=== PATIENT | male | born 1935 | race Caucasian/White ===

== ENCOUNTER 2016-08-16 11:33 | Inpatient (IN) | payer MEDICARE, OTHER ==
[~2016-08-16] VITALS: Ht 167.6 cm; Wt 100.2 kg
[~2016-08-16 11:33] MED LIST: BYSTOLIC5 MG PO; DOXYCYCLINE 10100 MG PO; FEXOFENADINE H180 MG PO; LASIX 20MG TABL20 MG PO; LISINOPRIL/HCTZ1 TA2 PO; MULTIPLE VITAMI1 CAP PO; NIACIN500 MG PO; NORCO 325 MG-51 TAB PO; PRINZIDE 25 MG-1 TAB PO; SPIRIVA18 MCG IH; SYNTHROID0.05 MG/TA PO; TYLENOL 325MG325 MG PO; TYLENOL ARTHRI650 M1 PO; XARELTO15 MG PO; ZOCOR 20MG20 MG PO; ZOVIRAX400 MG PO; ZYLOPRIM 300MG300 MG PO
[2016-08-16] MEDS ORDERED: TOPROL XL 25MG25 MG PO (14:11)
[2016-08-16] MEDS ORDERED: ULORIC40 MG PO ×2 (14:13→15:47)
[2016-08-16] MEDS ORDERED: RT SPIRIVA18 MCG IH (14:14)
[2016-08-16] MEDS ORDERED: ALLEGRA 180MG180 MG PO ×2 (14:15→15:47)
[2016-08-16] MEDS ORDERED: PLAVIX 75MG TAB75 MG PO (14:15)
[2016-08-16] MEDS ORDERED: SYNTHROID0.1 MG/TAB PO (14:18)
[2016-08-16] MEDS ORDERED: SLO-NIACIN250 MG PO (14:20)
[2016-08-16 19:14] VITALS: BP 120/82; PULSE 97; TEMP 97.4
[2016-08-17 05:43] VITALS: BP 129/59; PULSE 94; TEMP 97.4
[2016-08-17 16:12] VITALS: BP 157/81; PULSE 85; TEMP 97.1
[2016-08-18 06:18] VITALS: BP 164/73; PULSE 88; TEMP 97.5
[2016-08-18 17:22] VITALS: BP 157/88; PULSE 84; TEMP 97
[2016-08-19 04:52] VITALS: BP 107/48; PULSE 77; TEMP 97.7
[2016-08-19 07:29] VITALS: BP 149/77; PULSE 101
[2016-08-19 16:45] VITALS: BP 126/64; PULSE 79; TEMP 97
[2016-08-20 05:03] VITALS: BP 136/61; PULSE 87; TEMP 98.3
[2016-08-20 18:18] VITALS: BP 155/80; PULSE 88; TEMP 97
[2016-08-21 06:16] VITALS: BP 116/44; PULSE 77; TEMP 98.4
[2016-08-21 17:03] VITALS: BP 139/89; PULSE 82; TEMP 97.1
[2016-08-22 05:27] VITALS: BP 156/75; PULSE 76; TEMP 98.2
[2016-08-22 17:12] VITALS: BP 133/64; PULSE 95; TEMP 97
[2016-08-23 04:59] VITALS: BP 133/73; PULSE 74; TEMP 98.5
[2016-08-23 16:47] VITALS: BP 148/82; PULSE 95; TEMP 97
[2016-08-24 05:57] VITALS: BP 96/59; PULSE 77; TEMP 98.7
[2016-08-24 16:12] VITALS: BP 129/58; PULSE 80; TEMP 96.5
[2016-08-25 03:29] VITALS: BP 154/73; PULSE 94; TEMP 98.4
[2016-08-25 17:50] VITALS: BP 124/70; PULSE 92; TEMP 97.8
[2016-08-26 04:18] VITALS: BP 99/78; PULSE 75; TEMP 97.3
[2016-08-26 17:26] VITALS: BP 154/99; PULSE 107; TEMP 97.8
[2016-08-26 22:40] VITALS: BP 151/96; PULSE 94
[2016-08-27 04:58] VITALS: BP 103/53; PULSE 76; TEMP 97.2
[2016-08-27 12:00] VITALS: BP 146/70; PULSE 79
[2016-08-28 06:34] VITALS: BP 122/51; PULSE 73; TEMP 97.6
[2016-08-28 16:38] VITALS: BP 164/85; PULSE 96; TEMP 97.3
[2016-08-29 05:47] VITALS: BP 148/72; PULSE 73; TEMP 98.5
[2016-08-29 19:00] VITALS: BP 151/77; PULSE 107; TEMP 98
[2016-08-30 05:49] VITALS: BP 103/44; PULSE 58; TEMP 98.3
[2016-08-30] MEDS ORDERED: TYLENOL 325MG325 MG PO (08:40)
[2016-08-30] MEDS ORDERED: DULCOLAX S10 MG/SUPP RC (08:40)
[2016-08-30] MEDS ORDERED: COLACE 100100 MG/CAP PO (08:41)
[2016-08-30 09:54] VITALS: BP 103/44; PULSE 58; TEMP 98.3
== END 2016-08-30 11:20 | DRG 57 ==
DX: I69.351 Hemiplegia and hemiparesis following cerebral infarction affecting right dominant side (principal); I69.392 Facial weakness following cerebral infarction; I69.391 Dysphagia following cerebral infarction; I69.321 Dysphasia following cerebral infarction; I11.0 Hypertensive heart disease with heart failure; Z95.0 Presence of cardiac pacemaker; S30.1XXA Contusion of abdominal wall, initial encounter; W18.30XA Fall on same level, unspecified, initial encounter; R13.10 Dysphagia, unspecified
CPT/HCPCS: 99222-AI; 99232-AI; 99239; J1650

== ENCOUNTER 2020-12-26 07:46 | Day surgery (SDC) | payer MEDICARE, OTHER ==
[2020-12-26] VITALS (10 sets, daily range): BP systolic 121–165; BP diastolic 59–79; PULSE 59–64; TEMP 97.9
[~2020-12-26] VITALS: Ht 167.6 cm; Wt 87.8 kg
[~2020-12-26 07:46] MED LIST changes: +ALLEGRA 180MG180 MG PO; +COLACE 100100 MG/CAP PO; +DULCOLAX S10 MG/SUPP RC; -MULTIPLE VITAMI1 CAP PO; +MULTIPLE VITAMI1 TA5 PO; +PLAVIX 75MG TAB75 MG PO; +RT SPIRIVA18 MCG IH; +SLO-NIACIN250 MG PO; +TOPROL XL 25MG25 MG PO; +ULORIC40 MG PO
[2020-12-26] MEDS ORDERED: ZEBETA 5MG5 MG PO (08:37)
[2020-12-26] MEDS ORDERED: PACERONE200 MG PO (08:38)
[2020-12-26] MEDS ORDERED: LIPITOR 10MG10 MG PO (08:39)
[2020-12-26] MEDS ORDERED: CALQUENCE100 MG PO (08:40)
[2020-12-26] MEDS ORDERED: ALLEGRA 180MG180 MG PO (08:40)
[2020-12-26] MEDS ORDERED: INCRUSE EL62.5 MCG/A IH (08:41)
[2020-12-26 08:45] LABS: HEMOGLOBIN 11.4 g/dl (13.5-18.0); MEAN CELL VOLUME 95 fl (80.0-100.0); MEAN CORPUSCULAR HEMOGLOBIN 31 pg (27.0-31.0); MEAN CORPUSCULAR HGB CONC 33 g/dl (33.0-37.0); MEAN PLATELET VOLUME 10.7 fl (7.4-10.4); PLATELET COUNT 148 K/mm3 (130-400); RED BLOOD COUNT 3.66 M/mm3 (4.20-5.60); REDCELL DISTRIBUTION WIDTH-CV 15.6 % (11.5-14.5)
[2020-12-26 08:47] LABS: HEMATOCRIT 34.9 % (42.0-52.0)
[2020-12-26 08:54] LABS: INR 1.2 (0.8-3.0); PROTHROMBIN TIME 12.9 SECONDS (9.7-12.8)
[2020-12-26 08:56] LABS: CALCIUM 8.8 mg/dL (8.4-10.2); CREATININE, serum 1.39 mg/dL (0.72-1.25); PARTIAL THROMBOPLASTIN TIME 30.7 SECONDS (26.0-37.0); POTASSIUM 4.2 mmol/L (3.5-4.5)
--- NOTE | 2020-12-26 09:50 | NUR ---
SEE MERGE FOR MEDICATION ADMINISTRATION TIMES/DOSAGES AND INTRA/POST SEDATION ASSESSMENT.
[2020-12-26] MEDS ORDERED: ZIAC 5/6.25MG T1 TAB PO (11:03)
--- NOTE | 2020-12-26 12:45 | NUR ---
Pt assisted up from bed to use toilet in room. Venous puncture site to rt groin remains soft to palpation and dressing is clean, dry and intact. Pt is steady on feet with cane. DC instructions reviewed with pt and . Both express understanding. INT DC'd with catheter intact.
--- NOTE | 2020-12-26 13:00 | NUR ---
Pt assisted out to son's car by wheelchair with belongings. Dressing to rt venous puncture site remains clean, dry and intact.
== END 2020-12-26 13:00 | disposition home or self-care (01) ==
LOC: COL.CAR 07:46
PROVIDERS: Internal Medicine Cardiovascular Disease
DX: I27.20 Pulmonary hypertension, unspecified (principal); I10 Essential (primary) hypertension; Z95.0 Presence of cardiac pacemaker
CPT/HCPCS: C1894; J1644; J2250; J3010

== ENCOUNTER 2023-03-05 15:53 | Inpatient (IN) | payer MEDICARE ==
[~2023-03-05] VITALS: Ht 177.8 cm; Wt 92.6 kg
[2023-03-05 13:00] VITALS: BP_SYST 140
[~2023-03-05 15:53] MED LIST changes: +CALQUENCE100 MG PO; +INCRUSE EL62.5 MCG/A IH; +LIPITOR 10MG10 MG PO; +PACERONE200 MG PO; +ZEBETA 5MG5 MG PO; +ZIAC 5/6.25MG T1 TAB PO
[2023-03-05] MEDS ORDERED: NS 1,000 ML IV ONE (16:15)
[2023-03-05] MEDS ORDERED: Albuterol/Ipratropium 3 MG-0.5 MG/3 ML Neb Soln IH ONE (16:15)
[2023-03-05 16:20] LABS: ARTERIAL BLD GAS O2 SATURATION 96.6 % (92-100); ARTERIAL BLD GAS TCO2 CT 23.3; ARTERIAL BLOOD GAS BASE EXCESS -0.9 (-2-2); ARTERIAL BLOOD GAS HCO3 22.3 meq/L (22-26); ARTERIAL BLOOD GAS PCO2 32.4 mmHg (35-45); ARTERIAL BLOOD GAS pH 7.46 (7.35-7.45)
[2023-03-05 17:00] VITALS: BP_SYST 140
[2023-03-05] MEDS ORDERED: TYLENOL 8 HR PO (17:21)
[2023-03-05] MEDS ORDERED: Doxycycline Hyclate 100 MG in NS 150 ML IV ONE (17:30)
[2023-03-05] MEDS ORDERED: dexAMETHasone 10 MG/ML VIAL IV ONE (17:30)
[2023-03-05] MEDS ORDERED: cefTRIAXone 1 G in Water For Injection,Sterile 10 ML IV ONE (17:30)
[2023-03-05 17:33] LABS: BILIRUBIN,TOTAL 0.7 mg/dL (0.2-1.2); C-REACTIVE PROTEIN 6.9 mg/dL (0.00-0.50); CALCIUM 8.5 mg/dL (8.4-10.2); CREATININE, serum 1.25 mg/dL (0.72-1.25); POTASSIUM 3.7 mmol/L (3.5-4.5); TOTAL PROTEIN 6.4 gm/dL (6.2-8.1)
[2023-03-05 17:39] LABS: TROPONIN-I 0.021 ng/mL (0.00-0.033)
[2023-03-05 17:43] LABS: BASO % 0.2 % (0.0-2.0); EOS % 0.2 % (0.0-4.0); GRAN % 81.7 % (42.2-75.2); HEMATOCRIT 38.7 % (42.0-52.0); HEMOGLOBIN 12.8 g/dl (13.5-18.0); LYMPH # 0.4 K/mm3 (1.2-3.4); LYMPH % 7.5 % (20.0-51.0); MEAN CELL VOLUME 97 fl (80.0-100.0); MEAN CORPUSCULAR HEMOGLOBIN 32 pg (27-31); MEAN CORPUSCULAR HGB CONC 33 g/dl (33.0-37.0); MEAN PLATELET VOLUME 11.2 fl (7.4-10.4); MONO # 0.5 K/mm3 (0.1-0.6); MONO % 10.2 % (1.7-9.3); PLATELET COUNT 132 K/mm3 (130-400); RED BLOOD COUNT 3.99 M/mm3 (4.20-5.60); REDCELL DISTRIBUTION WIDTH-CV 13.6 % (11.5-14.5)
[2023-03-05] MEDS ORDERED: Acetaminophen 325 MG TAB PO PRN (18:15)
[2023-03-05] MEDS ORDERED: Albuterol 90 MCG/PUFF 8 GM MDI IH PRN (18:15)
[2023-03-05] MEDS ORDERED: hydrALAZINE 20 MG/ML 1 ML VIAL IV PRN (19:15)
[2023-03-05 19:26] LABS: COLLECTION METHOD CLEAN CATCH
[2023-03-05 19:52] VITALS: BP 173/85; PULSE 70; TEMP 99.2
--- NOTE | 2023-03-05 19:52 | NUR ---
RADHA ADMITTED TO ROOM 304. VS- 173/85 96 O2 ON 2L NC, TEMP. 99.2, PULSE 70, RR 20. INCREASED WOB PROFOUND-CLAVICLE RETRACTIONS AND BELLY BREATHING NOTED. LUNG SOUNDS AUSCULTATED INSP. & EXP. WHEEZES BILATERAL UPPER LOBES WITH COARSE CRACKLES IN LOWER LOBES. DAUGHTER WAS BEDSIDE AND MED REC COMPLETE. ORIENTED PATIENT TO ROOM. WILL MAINTAIN RESPIRATORY VIGILANCE.
[2023-03-05] MEDS ORDERED: Albuterol 90 MCG/PUFF 8 GM MDI IH SCH (20:00)
--- NOTE | 2023-03-05 20:00 | NUR ---
CALL PLACED TO RT, PATIENT DESAT 86-87%. INCREASED O2 3L- 02 SAT 93%.
[2023-03-05 20:12] LABS: MUCOUS Present (NOT PRESENT); SQUAMOUS EPITHELIAL 0-2 /hpf (0-10); URINE APPEARANCE Clear (CLEAR/HAZY); URINE BACTERIA Rare /hpf (NONE SEEN); URINE BLOOD Negative (NEGATIVE); URINE COLOR Yellow (YELLOW); URINE GLUCOSE Negative (NEGATIVE); URINE KETONE Negative (NEGATIVE); URINE NITRATE Negative (NEGATIVE); URINE PROTEIN(semi-quant) Negative (NEGATIVE); URINE RBC 0-2 /hpf (0-2); URINE UROBILINOGEN 0.2 E.U/dL (0.2-1.0)
[2023-03-05 21:00] VITALS: BP_SYST 173
[2023-03-05 21:22] LABS: INR 1.1 (0.8-3.0); PROTHROMBIN TIME 12.2 SECONDS (9.7-12.8)
--- NOTE | 2023-03-05 21:30 | NUR ---
VITALS RECHECK- SYSTOLIC BP 182, ADMINISTERED PRN HYDRALAZINE 0.5ML.
--- NOTE | 2023-03-05 21:40 | NUR ---
Call placed to hospitalist critical lab value [place] 275
--- NOTE | 2023-03-05 22:05 | NUR ---
RECHECKED VITALS: BP 160/66, 95 % O2 3L NC, 70 PULSE.
--- NOTE | 2023-03-05 22:37 | NUR ---
ALERTED BY VITALS MONITOR/ALARM. ENTERED PATIENTS ROOM TO FIND O2 NC COMPLETELY OFF. REAPPLIED AND O2 SAT 89% RECOVERING TO 95%.
[2023-03-05 23:16] VITALS: BP 140/87; BP_SYST 173; PULSE 71; TEMP 98.2
[2023-03-06] VITALS (11 sets, daily range): BP systolic 140–174; BP diastolic 71–78; PULSE 70–80; TEMP 97.3–98.4
--- NOTE | 2023-03-06 00:51 | NUR ---
ENTERED PATIENT'S ROOM TO FIND OXYGEN NC ON TOP OF HIS HEAD. O2 SAT 88%. ASKED IF HE WOULD BE MORE COMFORTABLE WITH OXYMASK, HE SAID, "NO I DON'T LIKE THESE, THEY MAKE A LOUD NOISE." (REFERRING TO VITALS MONITOR ALARM). EXPLAINED THE NEED FOR OXYGEN AND PULSE OX VIGILANCE. PATIENT ACCEPTING.
--- NOTE | 2023-03-06 01:38 | NUR ---
Report from TI Mcnamara that she would like patient to be seen by charge. Patient noted to have very labored breathing at rest. Appears to be sleeping. Noted to have retractions at clavicles. Is currently on 4L/NC. RT is also at bedside. Instructed to call MARU Goldstein for eval. New orders received and initiated.
[2023-03-06] MEDS ORDERED: Furosemide 40 MG/4 ML VIAL IV ONE (01:45)
--- NOTE | 2023-03-06 01:55 | NUR ---
CALL PLACED TO HOSPITALIST ANGELO. PATIENT WOB BECOMING MORE NOTEABLE WITH SIGNIFICANT WHEEZING, CRACKLES AND RETRACTIONS. BILATERAL +3 EDEMA. TORB TO IXS, PLACE GALVEZ, STOP FLUIDS, CT CHEST, ABGS AND MONITOR FOR FLUID OVERLOAD GIVEN. CALL ALSO PLACED TO RT-30% FIO2 BIPAP
[2023-03-06 02:13] LABS: ARTERIAL BLD GAS O2 SATURATION 98.4 % (92-100); ARTERIAL BLD GAS TCO2 CT 20.8; ARTERIAL BLOOD GAS BASE EXCESS -2.9 (-2-2); ARTERIAL BLOOD GAS HCO3 19.9 meq/L (22-26); ARTERIAL BLOOD GAS PCO2 29.2 mmHg (35-45); ARTERIAL BLOOD GAS PO2 113.8 mmHg (80-100); ARTERIAL BLOOD GAS pH 7.45 (7.35-7.45)
--- NOTE | 2023-03-06 02:50 | NUR ---
RT NOTIFIED BY NURSE OF PT'S LABORED BREATHING. MDI TX GIVEN. MIDLEVEL NOTIFIED, ORDERS TO OBTAIN ABG AND INITIATE BIPAP RECIEVED. NO NEW ORDERS AT THIS TIME.
[2023-03-06] MEDS ORDERED: Iohexol 300 - 100 ML VIAL IV ONE (03:56)
[2023-03-06] MEDS ORDERED: NS 64 ML IV SCH (03:56)
--- NOTE | 2023-03-06 06:34 | NUR ---
VITAL SIGNS RECHECK-SYSTOLIC BP 184/89. O2 95% ON 4L OXYMASK, PULSE 70. ADMINISTERING PRN IV HYDRALAZINE
[2023-03-06] MEDS ORDERED: Doxycycline Hyclate 100 MG in NS 150 ML IV SCH (08:00)
--- NOTE | 2023-03-06 08:20 | NUR ---
during shift change patient was working with Respiratory. patient placed on bipap machine. patient alert and oriented x3. patient denies any pain but is experiencing shortness of air just laying in bed.patient was able to take his medication this morning with no issues. call light within reach. bed alarm on.
[2023-03-06] MEDS ORDERED: Amiodarone 200 MG TAB PO SCH (09:00)
[2023-03-06] MEDS ORDERED: dexAMETHasone 10 MG/ML VIAL IV SCH (09:00)
[2023-03-06] MEDS ORDERED: Atorvastatin 10 MG TAB PO SCH (09:00)
[2023-03-06] MEDS ORDERED: Loratadine 10 MG TAB PO SCH (09:00)
[2023-03-06] MEDS ORDERED: BISOPROLOL PO SCH (09:00)
[2023-03-06] MEDS ORDERED: Tiotropium 2.5 MCG Respimat MDI IH SCH (09:00)
[2023-03-06] MEDS ORDERED: HYDROCHLOROTHIAZIDE PO SCH (09:00)
[2023-03-06] MEDS ORDERED: Umeclidinium 62.5 MCG **** subs to Tiotropium 5 mcg IH SCH (09:00)
[2023-03-06] MEDS ORDERED: Fexofenadine 180 MG **** subs to Loratadine 10 MG PO SCH (09:00)
[2023-03-06 09:30] LABS: HEMATOCRIT 38.9 % (42.0-52.0); HEMOGLOBIN 12.9 g/dl (13.5-18.0); MEAN CELL VOLUME 98 fl (80.0-100.0); MEAN CORPUSCULAR HEMOGLOBIN 32 pg (27-31); MEAN CORPUSCULAR HGB CONC 33 g/dl (33.0-37.0); MEAN PLATELET VOLUME 10.6 fl (7.4-10.4); PLATELET COUNT 145 K/mm3 (130-400); RED BLOOD COUNT 3.99 M/mm3 (4.20-5.60); REDCELL DISTRIBUTION WIDTH-CV 13.5 % (11.5-14.5)
[2023-03-06 09:54] LABS: ALBUMIN 2.9 gm/dL (3.4-4.8); BILIRUBIN,TOTAL 0.6 mg/dL (0.2-1.2); CALCIUM 8.2 mg/dL (8.4-10.2); CREATININE, serum 1.07 mg/dL (0.72-1.25); POTASSIUM 3.7 mmol/L (3.5-4.5); TOTAL PROTEIN 6.3 gm/dL (6.2-8.1)
[2023-03-06 10:24] LABS: BAND 2 % (0-10); LYMPHOCYTE 7 % (20.0-51.0); NEUTROPHILS 91 % (42.0-75.2); OVALOCYTES 1+; PLATELET ESTIMATE NORMAL (NORMAL)
--- NOTE | 2023-03-06 13:11 | NUR ---
animal husbandry worker completed intake over the with pt's daughter due to isolation and not being oriented in recent notes. CATHY called Chester, son [phone] who took SW number for his sister, Cierra to call back. CATHY spoke with Cierra who advised pt lives in [place] and sees Dr. José. He obtains medications from [facility] with no difficulties. He is independent with ADLS and uses a FWW and cane for DME. Cierra reports he has a DPOA-HC they are looking for, but it lists his children: Cierra, Chester, and Denton. Cierra provides they were planning to have pt go to [facility] tomorrow at 10am, then this hospital stay happened. She reports she spoke with them and they are aware pt is now here. CATHY advised PT/OT was pending at this time. CATHY Watt faxed updates to [facility]. OT reccomends SNF vs LTC. Discharge Plan: [facility] when able
[2023-03-06] MEDS ORDERED: cefTRIAXone 1 G in Water For Injection,Sterile 10 ML IV SCH (18:00)
--- NOTE | 2023-03-06 20:30 | NUR ---
Patient resting in bed. Denies any pain or needs at this time. Assessment complete. IV in left AC flushes easily with no complicaitons. Call light and personal items in reach. Bed in low position and bed alarm on.
[2023-03-07] VITALS (14 sets, daily range): BP systolic 147–174; BP diastolic 61–75; PULSE 70–73; TEMP 97.5–98.2
--- NOTE | 2023-03-07 06:00 | NUR ---
Patient resting in bed. Denies any pain or needs this morning. Patient had an uneventful evening. Patient was wheezing when giving morning meds, called respiratory to give PRN inhaler. Patient agreed to go back on bipap for a little bit as well. Call light and personal items in reach. Bed in low position and bed alarm on.
[2023-03-07 08:00] LABS: HEMOGLOBIN 12.8 g/dl (13.5-18.0); MEAN CELL VOLUME 97 fl (80.0-100.0); MEAN CORPUSCULAR HEMOGLOBIN 33 pg (27-31); MEAN CORPUSCULAR HGB CONC 34 g/dl (33.0-37.0); MEAN PLATELET VOLUME 11.8 fl (7.4-10.4); PLATELET COUNT 158 K/mm3 (130-400); RED BLOOD COUNT 3.93 M/mm3 (4.20-5.60); REDCELL DISTRIBUTION WIDTH-CV 13.8 % (11.5-14.5)
[2023-03-07 08:18] LABS: ALBUMIN 2.7 gm/dL (3.4-4.8); BILIRUBIN,TOTAL 0.5 mg/dL (0.2-1.2); CALCIUM 8.1 mg/dL (8.4-10.2); CREATININE, serum 1.18 mg/dL (0.72-1.25); POTASSIUM 4.9 mmol/L (3.5-4.5); TOTAL PROTEIN 6.1 gm/dL (6.2-8.1)
[2023-03-07] MEDS ORDERED: Clopidogrel 75 MG TAB PO SCH (09:00)
--- NOTE | 2023-03-07 09:20 | NUR ---
PT RESTING IN BED UPON ENTERING. ASSESSMENT DONE, ORAL MEDS GIVEN PER ORDER. IN TO LEFT AC INFILTRATED, UNABLE TO GIVE IV MEDS AT THIS TIME. PT DENIES PAIN AT THIS TIME. PT ON 3L OXYMASK AND O2 SATS 90%. PHYSICAL THERAPY AT BEDSIDE AND STATES THAT PT OXYGEN SATS DROPPED TO LOW 80S DURING AMBULATION. RESPIRATORY CALLED TO APPLY BIPAP. BILATERAL LOWER EXTREMITY +1 AND NON PITTING BILATERAL UPPER EXTREMITY EDEMA. PT DENIES NEEDS AT THIS TIME. BED IN LOWEST POSITION, CALL LIGHT IN REACH, BED ALARM ON
[2023-03-07 09:52] LABS: LYMPHOCYTE 2 % (20.0-51.0); NEUTROPHILS 94 % (42.0-75.2); PLATELET ESTIMATE NORMAL (NORMAL)
--- NOTE | 2023-03-07 11:00 | NUR ---
LEFT AC INT INFILTRATED. EDEMA AROUND SITE, NO REDNESS NOTED AND PT COMPLAINING OF PAIN WHEN INT FLUSHED. THIS NURSE ATTEMPTED TO START NEW IV 2 TIMES WITH NO SUCCESS. DAVID FROM [facility] NOTIFIED AND STATED THAT SHE IS TOO BUSY TO ATTEMPT RIGHT NOW BUT WILL BE ABLE TO IN 1 HOUR.
--- NOTE | 2023-03-07 11:06 | NUR ---
SW Student faxed clinical updates to [facility] (fax#[phone]).
--- NOTE | 2023-03-07 12:20 | NUR ---
IV SERVICES AT BEDSIDE AND STARTED AT 20G IV RIGHT HAND. DECADRON AND ANTIBIOTICS GIVEN PER ORDER. PT SWITCHED FROM BIPAP TO 3L OXYMASK, O2 SATS 92%. PT DENIES NEEDS AT THIS TIME. BED IN LOWEST POSITION, CALL LIGHT IN REACH, BED ALARM ON
--- NOTE | 2023-03-07 16:08 | NUR ---
PT ON 3L OXYMASK UPON ENTERING. REMDESIVIR COMPLETE AND IV FLUSHED. PT DENEIS NEEDS AT THIS TIME. BED IN LOWEST POSITION, CALL LIGHT IN REACH, BED ALARM ON
--- NOTE | 2023-03-07 18:25 | NUR ---
PT GIVEN IV ROCEPHIN. PT REPOSITIONED IN BED AND GALVEZ EMPTIED BY PRICE HOGUE.
--- NOTE | 2023-03-07 19:18 | NUR ---
REPORT GIVEN TO TI AL
--- NOTE | 2023-03-07 19:40 | NUR ---
PATIENT RESTING IN BED WITH TV ON WITH FAMILY AT BEDSIDE WITH NO ACUTE DISTRESS NOTED. PATIENT ON 3 LITERS OF OXYGEN VIA OXYMASK. TELEMETRY INTACT. FAMILY UPDATED ON PATIENT CONDITION PER REQUEST AND PATIENT APPROVAL. ASSESSMENT COMPLETED. PATIENT TOLERATED WELL. PATIENT DENIES ANY NEEDS AT PRESENT. BED IN LOW POSITION WITH WHEELS LOCKED WITH RAILS UP X3 AND CALL LIGHT WITHIN REACH. BED ALARM ON.
--- NOTE | 2023-03-07 21:09 | NUR ---
PATIENT RESTING IN BED WITH TV ON WITH NO FAMILY PRESENT WITH NO ACUTE DISTRESS NOTED. PATIENT ON 3 LITERS OF OXYGEN VIA OXYMASK. MEDICATION ADMINISTRATION COMPLETED AT THIS TIME. PATIENT TOELRATED WELL. PATIENT REQUESTED HELP TO BSC. PATIENT ASSISTED UP TO BSC WITH WALKER. PATIETN HAD MEDIUM SOFT FORMED BOWEL MOVEMENT. LUISITO CARE PROVIDED AND PATIENT ASSISTED TO REPOSITION IN BED FOR COMFORT. PATIENT DENIES ANY OTHER NEEDS. BED IN LOW POSITION WITH WHEELS LOCKED WITH RAILS UP X3 AND CALL LIGHT WITHIN REACH. BED ALARM ON.
[2023-03-08] VITALS (11 sets, daily range): BP systolic 134–179; BP diastolic 42–84; PULSE 68–73; TEMP 96.9–98.5
[2023-03-08 05:57] LABS: GRAN # 11.5 K/mm3 (1.4-6.5); GRAN % 93.9 % (42.2-75.2); LYMPH # 0.2 K/mm3 (1.2-3.4); LYMPH % 1.9 % (20.0-51.0); MEAN CELL VOLUME 99 fl (80.0-100.0); MEAN CORPUSCULAR HEMOGLOBIN 33 pg (27-31); MEAN CORPUSCULAR HGB CONC 33 g/dl (33.0-37.0); MEAN PLATELET VOLUME 11.5 fl (7.4-10.4); MONO # 0.4 K/mm3 (0.1-0.6); MONO % 3.5 % (1.7-9.3); PLATELET COUNT 173 K/mm3 (130-400); RED BLOOD COUNT 3.68 M/mm3 (4.20-5.60); REDCELL DISTRIBUTION WIDTH-CV 13.9 % (11.5-14.5)
[2023-03-08 06:04] LABS: HEMATOCRIT 36.3 % (42.0-52.0)
[2023-03-08 06:14] LABS: ALBUMIN 2.6 gm/dL (3.4-4.8); BILIRUBIN,TOTAL 0.4 mg/dL (0.2-1.2); CREATININE, serum 1.02 mg/dL (0.72-1.25); TOTAL PROTEIN 5.3 gm/dL (6.2-8.1)
--- NOTE | 2023-03-08 07:00 | NUR ---
PATIENT ASLEEP, RESTING IN BED. PATIENT CALL LIGHT WITHIN REACH. GALVEZ PATENT AND DRAINING YELLOW URINE. BED ALARM ON, FALL PRECAUTIONS IN PLACE.
--- NOTE | 2023-03-08 12:06 | NUR ---
Data: Director Integrated visit attempted during Director Integrated rounds. Assessment: Patient was sleeping in the recliner. Plan of Care: Chaplains will remain available as needed/requested while Patient is admitted to this hospital.
[2023-03-08] MEDS ORDERED: dexAMETHasone 4 MG/ML VIAL IV ONE (13:15)
[2023-03-08] MEDS ORDERED: Remdesivir 100 MG in NS 100 ML IV SCH (16:00)
[2023-03-08] MEDS ORDERED: amLODIPine 5 MG TAB PO SCH (17:33)
--- NOTE | 2023-03-08 21:05 | NUR ---
PATIENT RESTING IN BED WITH TV ON WITH NO FAMILY PRESENT. NO ACUTE DISTRESS NOTED. PATIENT ON 3 LITERS OF OXYGEN VIA NC. ASSESSMENT COMPLETED. PATIENT TOLERATED WELL. PATIENT DENIES ANY NEEDS AT PRESENT. BED IN LOW POSITION WITH WHEELS LOCKED WITH RAILS UP X3 AND CALL LIGHT WITHIN REACH. BED ALARM ON.
--- NOTE | 2023-03-08 21:46 | NUR ---
PATIENT RESTING IN BED WITH TV ON WITH NO FAMILY PRESENT WITH NO ACUTE DISTRESS NOTED. PATIENT ON 4 LITERS OF OXYGEN VIA NC. MEDICATION ADMINISTRATION COMPLETED AT THIS TIME. PATIENT TOLERATED WELL. PATIENT DENIES ANY NEEDS AT THIS TIME. BED IN LOW POSITION WITH WHEELS LOCKED WITH RAILS UP X3 AND CALL LIGHT WITHIN REACH. BED ALARM ON.
[2023-03-09] VITALS (12 sets, daily range): BP systolic 136–169; BP diastolic 59–92; PULSE 72–79; TEMP 97.5–98.9
--- NOTE | 2023-03-09 05:57 | NUR ---
PATIENT RESTING IN BED WITH OXYMASK NOTED TO BE OFF. OXYMASK PLACED BACK ON AND PATIENT O2 SAT 94% ON 3.5 LITERS. MEDICATION ADMINISTRATION COMPLETED. PATIENT TOLERATED WELL. PATIENT WEIGHT AFTER GALVEZ EMPTIED IS 93.5 KG PER BEDSCALE.
--- NOTE | 2023-03-09 07:00 | NUR ---
PATIENT ASLEEP, RESTING IN BED, BED ALARM ON, FALL PRECAUTIONS IN PLACE. GALVEZ PATENT AND DRAINING DARK YELLOW URINE. OM ON WITH O2 AT 3.5L. CALL LIGHT WITHIN REACH
--- NOTE | 2023-03-09 07:30 | NUR ---
UPON ENTERING ROOM THIS RN FOUND PATIENT WITH OXYMASK OFF, O2 WAS 87% ON ROOM AIR. PATIENT PLACED BACK ON OXYMASK AT 3.5L. O2 SAT INCREASED TO 93%. PATIENT WAS REPOSOTIONED IN BED. ON ASSESSMENT PATIENTS RESPIRATIONS WERE 26 BREATHS PER MINUTE, PATIENT COMPLAINED OF SOB. WHEEZES AUDIBLE WITHOUT STETHOSCOPE. RT CALLED FOR TREATMENT.
[2023-03-09 09:00] LABS: HEMATOCRIT 38.5 % (42.0-52.0); HEMOGLOBIN 12.8 g/dl (13.5-18.0); MEAN CELL VOLUME 98 fl (80.0-100.0); MEAN CORPUSCULAR HEMOGLOBIN 32 pg (27-31); MEAN CORPUSCULAR HGB CONC 33 g/dl (33.0-37.0); MEAN PLATELET VOLUME 11.4 fl (7.4-10.4); PLATELET COUNT 211 K/mm3 (130-400); RED BLOOD COUNT 3.95 M/mm3 (4.20-5.60); REDCELL DISTRIBUTION WIDTH-CV 13.6 % (11.5-14.5)
[2023-03-09] MEDS ORDERED: dexAMETHasone 10 MG/ML VIAL IV SCH (09:00)
--- NOTE | 2023-03-09 09:00 | NUR ---
PER PATIENT HE DOES NOT FEEL SOB AT THIS TIME. HOWEVER RESPIRATIONS STILL AT 26 PER MINUTE.
[2023-03-09 09:29] LABS: ALBUMIN 2.8 gm/dL (3.4-4.8); BILIRUBIN,TOTAL 0.5 mg/dL (0.2-1.2); CALCIUM 8.3 mg/dL (8.4-10.2); CREATININE, serum 1.1 mg/dL (0.72-1.25); POTASSIUM 4.2 mmol/L (3.5-4.5); TOTAL PROTEIN 5.6 gm/dL (6.2-8.1)
[2023-03-09] MEDS ORDERED: Furosemide 40 MG/4 ML VIAL IV SCH (09:51)
[2023-03-09 09:52] LABS: BAND 2 % (0-10); NEUTROPHILS 94 % (42.0-75.2); PLATELET ESTIMATE NORMAL (NORMAL)
[2023-03-09] MEDS ORDERED: dexAMETHasone 4 MG TAB PO SCH (11:10)
--- NOTE | 2023-03-09 11:24 | NUR ---
DOS EOF CARDIZEM INCREASED AND ADMINISTERED ( SEE EMAR) PATIENT NOW AFIB WITH A HR OF 99.
--- NOTE | 2023-03-09 12:00 | NUR ---
IV ACCESS LOST. KATHARINA IN ER CAME TO UNIT AND WAS ABLE TO PLACE AN IV. PATIENT DENIES ANY NEEDS OR COMPLAINTS AT THIS TIME. 02 AT 3.5L OM. FOLE PATENT AND DRAINING. FALL PRECAUTIONS IN PLACE.
[2023-03-09] MEDS ORDERED: Cefepime 1 G in Water For Injection,Sterile 10 ML IV SCH (12:15)
--- NOTE | 2023-03-09 14:00 | NUR ---
ALEX SON AND DAUGHTER IN LAW UPDATED ON PATIENT STATUS
[2023-03-09] MEDS ORDERED: Furosemide 40 MG TAB PO SCH (16:00)
--- NOTE | 2023-03-09 20:00 | NUR ---
PATIENT IS A&O. VSS ON TELE. 02 @ 3L PER OXYMASK. NOTED A&P LUNG COOMBS WITH EXP WHEEZES AND COARSE LUNG SOUNDS. COVID PRECAUTIONS INPLACE. TOLERATING AHA DIET. LEFT AC IV TO INT. HS MEDS GIVEN. GALVEZ TO DD. HEAD TO TOE ASSESSMENT COMPLETE. DNR STATUS. NOTED BLE EDEMA. 1 ASSIST WITH WALKER. PT/OT CONSULTED. NO OTHER NEEDS AT THIS TIME. CALL LIGHT IN REACH. BED ALARM ON.
[2023-03-09] MEDS ORDERED: Doxycycline Monohydrate 100 MG CAP PO SCH (21:00)
[2023-03-10] VITALS (12 sets, daily range): BP systolic 138–167; BP diastolic 62–110; PULSE 70–73; TEMP 97.7–98.6
--- NOTE | 2023-03-10 05:45 | NUR ---
PATIENT FOUND TO HAVE TAKEN HIS OXYMASK OFF. AT FIRST, PATIENT REFUSED TO WEAR OXYGEN, SEEMED A LITTLE CONFUSED BUT NURSING WAS ABLE TO EDUCATE AND TALK PATIENT INTO WEARING OXYMASK. 02 SAT DROP TO MID 80'S ON RA AND HAS INCREASED IN RESPIRATORY WHEEZING. 02 SAT NOW IN LOW 90'S ON 4L OXYMASK.
--- NOTE | 2023-03-10 07:40 | NUR ---
PT LAYING IN BED UPON ENTERING. ASSESSMENT DONE, MEDS GIVEN. PT ON 4L OXYMASK AND REPORTS BEING SHORT OF BREATH AT THIS TIME, PT STATES THIS IS CONSISTENT WITH HOW HES BEEN FEELING. OXYMASK CHANGED TO NASAL CANNULA AND PT EDUCATED THAT HE NEEDS TO KEEP OXYGEN ON WHEN EATING WELL, PT VERBALIZED UNDERSTANDING. PT DENIES PAIN AT THIS TIME. INT TO LEFT AC FLUSHES WELL WITHOUT COMPLICATIONS, WRAPPED WITH NATALIE WRAP. BILATERAL LOWER EXTREMITY +1 PITTING EDEMA AND BILATERAL UPPER EXTREMITY NONPITTING EDEMA. GALVEZ PATENT WITHOUT COMPLICATIONS. EXPIRATORY WHEEZES HEARD IN ALL COOMBS, PRODUCTIVE COUGH NOTED. THIS NURSE OFFERED PT TO GET UP INTO CHAIR FOR BREAKFAST AND PT REFUSES. PT REPOSITIONED UP IN BED AND HEAD OF BED ELEVATED, LEGS ELEVATED ON PILLOWS. PT DENIES NEEDS AT THIS TIME. BED IN LOWEST POSITION, CALL LIGHT IN REACH, BED ALARM ON.
--- NOTE | 2023-03-10 07:56 | NUR ---
LAB CALLED AND NOTIFIED THIS NURSE THAT THEY WERE UNABLE TO GET LABS THIS MORNING AND THAT ANOTHER RECEIVING DISTRIBUTION STATION OPERATOR WOULD BE ON THE FLOOR TO ATTEMPT TO FRAW LABS
--- NOTE | 2023-03-10 08:06 | NUR ---
ULTRASOUND AT BEDSIDE
[2023-03-10] MEDS ORDERED: Furosemide 40 MG/4 ML VIAL IV SCH (09:15)
[2023-03-10] MEDS ORDERED: amLODIPine 5 MG TAB PO ONE (09:45)
--- NOTE | 2023-03-10 10:03 | NUR ---
MORNING LABS NOT DRAWN. LAB CALLED AND UPDATED, TECH TOLD THIS NURSE "MY SQL ETL DEVELOPER IS UP THERE NOW"
[2023-03-10 10:12] LABS: HEMOGLOBIN 13.5 g/dl (13.5-18.0); MEAN CELL VOLUME 95 fl (80.0-100.0); MEAN CORPUSCULAR HEMOGLOBIN 33 pg (27-31); MEAN CORPUSCULAR HGB CONC 35 g/dl (33.0-37.0); PLATELET COUNT 188 K/mm3 (130-400); REDCELL DISTRIBUTION WIDTH-CV 13.4 % (11.5-14.5)
[2023-03-10 10:30] LABS: ALBUMIN 2.6 gm/dL (3.4-4.8); BILIRUBIN,TOTAL 0.7 mg/dL (0.2-1.2); CREATININE, serum 1.48 mg/dL (0.72-1.25); POTASSIUM 3.8 mmol/L (3.5-4.5); TOTAL PROTEIN 5.2 gm/dL (6.2-8.1)
[2023-03-10 11:33] LABS: LYMPHOCYTE 1 % (20.0-51.0); NEUTROPHILS 97 % (42.0-75.2); PLATELET ESTIMATE NORMAL (NORMAL)
--- NOTE | 2023-03-10 12:22 | NUR ---
PT SITTING UP IN BED EATING UPON ENTERING. MEDS GIVEN. PT ON 4L NASAL CANNULA AND EXPIRATORY WHEEZING AUDIBLE. PT DENIES BEING SHORT OF BREATH AT THIS TIME. PT DENEIS NEEDS AT THIS TIME. BED IN LOWEST POSITION, CALL LIGHT IN REACH, BED ALARM ON
--- NOTE | 2023-03-10 12:40 | NUR ---
utility worker roller shop spoke with Dr. Espinal who advised pt can potentially discharge tomorrow pending Pulmonology consult. Pt will need oxygen and said he will put oximetry test in. CATHY spoke with [facility] who reports they can transport patient if they do not have conflicting appointments. CATHY spoke with Cierra, daughter [phone] regarding an update for discharge plans. Cierra was inquiring about a time and CATHY asvised she will not know by when Pulmonology could see pt. Cierra would like updates when able regarding discharge planning. CATHY faxed updates to [facility]. Discharge Plan: [facility] when able
--- NOTE | 2023-03-10 18:36 | NUR ---
ANTIBIOTIC COMPLETE, INT FLUSHED AND WRAPPED WITH NATALIE WRAP. PT ON 3L OXYMASK AND DENIES NEEDS AT THIS TIME
--- NOTE | 2023-03-10 18:56 | NUR ---
REPORT GIVEN TO TI AL
--- NOTE | 2023-03-10 22:54 | NUR ---
PATIENT DOES NOT APPEAR TO BE IN DISTRESS AT THIS TIME. NO PAIN OR DISCOMFORT REPORTED. GALVEZ CATHETAR IN PLACE WITH DEPENDENT DRAINAGE. SUPPLEMENTAL OXYGEN BEING ADMINISTERED AT 2L VIA OXYMASK. BED IS LOW POSITION AND CALL LIGHT WITHIN REACH. PATIENT HAS NO QUESTIONS OR CONCERNS AT THIS TIME.
[2023-03-11] VITALS (7 sets, daily range): BP systolic 124–172; BP diastolic 50–86; PULSE 69–71; TEMP 97.6–98.1
[2023-03-11] MEDS ORDERED: amLODIPine 10 MG TAB PO SCH (09:00)
--- NOTE | 2023-03-11 09:54 | NUR ---
Patient awake, alert and orieted. Oxymask in place, shortness of breath on exertion. Hard of hearing. Tina discontinued this AM, will monitor for issues with voiding. x1 assist ambulating with walker. Bed in lowest position with call light within reach.
--- NOTE | 2023-03-11 09:54 | NUR ---
PATIENT SPO2 ON RA 85%. NEEDS 2LPM AT REST <88%. PATIENT NEEDS 4LPM WITH EXERTION.
[2023-03-11] MEDS ORDERED: DECADRON6 MG PO (11:21)
[2023-03-11] MEDS ORDERED: NORVASC 10MG10 MG PO (11:21)
[2023-03-11] MEDS ORDERED: DOXYCYCLINE 10100 MG PO (11:21)
[2023-03-11] MEDS ORDERED: LASIX 20MG TABL20 MG PO (11:21)
[2023-03-11 11:39] LABS: CALCIUM 8.1 mg/dL (8.4-10.2); CREATININE, serum 1.52 mg/dL (0.72-1.25); POTASSIUM 4.2 mmol/L (3.5-4.5)
--- NOTE | 2023-03-11 11:54 | NUR ---
diversified crops ii farmworker was informed by Dr. Espinal that pt can discharge to [facility] today. SW called [facility] and they will take care of oxygen. CATHY faxed the oximetry and discharge orders to [facility]. CATHY spoke with Dtr, Cierra who reports they will transport patient and can be here around 1:00pm. CATHY advised they will have to stop by [facility] to retrieve the oxygen. Cierra verbalized understanding. CATHY went over IM from Medicare as pt did not answer room phone and is in isolation. Cierra and Chester were on the phone together and provided verbal consent. CATHY made copy and put original in chart. Discharge Plan: [facility] 1:00pm
--- NOTE | 2023-03-11 12:08 | NUR ---
Report called to [facility], all questions answered.
--- NOTE | 2023-03-11 14:10 | NUR ---
Patient discharged to [facility], all belongings sent home with family members. Report called to [facility]. Assisted out by wheelchair to car, patient hooked up to oxygen provided by [facility].
== END 2023-03-11 14:12 | DRG 177 ==
LOC: COL.ER 15:53 → MEDICAL 18:13
PROVIDERS: Emergency Medicine; Internal Medicine; Nurse Practitioner Family; ADMIT Internal Medicine
PROC: 5A09457 Assistance with Respiratory Ventilation, 24-96 Consecutive Hours, Continuous Positive Airway Pressure (ICD-10-PCS; principal; 2023-03-06)
PROC: XW033E5 Introduction of Remdesivir Anti-infective into Peripheral Vein, Percutaneous Approach, New Technology Group 5 (ICD-10-PCS; 2023-03-07)
DX: U07.1 COVID-19 (principal); J12.82 Pneumonia due to coronavirus disease 2019; J96.01 Acute respiratory failure with hypoxia; I69.351 Hemiplegia and hemiparesis following cerebral infarction affecting right dominant side; E87.20 Acidosis, unspecified; J90 Pleural effusion, not elsewhere classified; N17.9 Acute kidney failure, unspecified; Z66 Do not resuscitate; I10 Essential (primary) hypertension; J43.9 Emphysema, unspecified; E03.9 Hypothyroidism, unspecified; E78.5 Hyperlipidemia, unspecified; R74.01 Elevation of levels of liver transaminase levels; Z96.652 Presence of left artificial knee joint; D64.9 Anemia, unspecified; I49.9 Cardiac arrhythmia, unspecified; R79.89 Other specified abnormal findings of blood chemistry; Z85.72 Personal history of non-Hodgkin lymphomas; Z95.0 Presence of cardiac pacemaker; Z90.49 Acquired absence of other specified parts of digestive tract; Z88.6 Allergy status to analgesic agent; Z87.891 Personal history of nicotine dependence; Z79.890 Hormone replacement therapy; Z79.02 Long term (current) use of antithrombotics/antiplatelets; Z79.899 Other long term (current) drug therapy; Z23 Encounter for immunization
CPT/HCPCS: A9270; J0248; J0360; J0692; J0696; J1100; J1650; J1940; J7030; J7050; J8540; Q9967

== ENCOUNTER 2023-04-06 08:56 | Inpatient (IN) | payer MEDICARE ==
[~2023-04-06] VITALS: Ht 165.1 cm; Wt 97.2 kg
[2023-04-06] VITALS (591 sets, daily range): BP systolic 98–123; BP diastolic 56; PULSE 69; TEMP 98.2; O2SAT 87–99
[~2023-04-06 08:56] MED LIST changes: +CALQUENCE100 M1 PO; -CALQUENCE100 MG PO; +DECADRON6 MG PO; +NORVASC 10MG10 MG PO; +TYLENOL 8 HR PO
[2023-04-06] MEDS ORDERED: NS 1,000 ML IV ONE (09:15)
[2023-04-06 09:17] LABS: HEMOGLOBIN 11.6 g/dl (13.5-18.0); MEAN CELL VOLUME 97 fl (80.0-100.0); MEAN CORPUSCULAR HEMOGLOBIN 31 pg (27-31); MEAN CORPUSCULAR HGB CONC 32 g/dl (33.0-37.0); MEAN PLATELET VOLUME 9.9 fl (7.4-10.4); PLATELET COUNT 254 K/mm3 (130-400); RED BLOOD COUNT 3.71 M/mm3 (4.20-5.60); REDCELL DISTRIBUTION WIDTH-CV 13.7 % (11.5-14.5)
[2023-04-06 09:19] LABS: HEMATOCRIT 35.9 % (42.0-52.0)
[2023-04-06 09:21] LABS: ARTERIAL BLD GAS O2 SATURATION 94.8 % (92-100); ARTERIAL BLD GAS TCO2 CT 25.1; ARTERIAL BLOOD GAS BASE EXCESS 1.9 (-2-2); ARTERIAL BLOOD GAS HCO3 24.2 meq/L (22-26); ARTERIAL BLOOD GAS PCO2 30.2 mmHg (35-45); ARTERIAL BLOOD GAS PO2 71.1 mmHg (80-100); ARTERIAL BLOOD GAS pH 7.52 (7.35-7.45)
[2023-04-06 09:29] LABS: ALBUMIN 2.3 gm/dL (3.4-4.8); BILIRUBIN,TOTAL 0.8 mg/dL (0.2-1.2); CALCIUM 8.2 mg/dL (8.4-10.2); CREATININE, serum 1.1 mg/dL (0.72-1.25); POTASSIUM 3.6 mmol/L (3.5-4.5); TOTAL PROTEIN 5.4 gm/dL (6.2-8.1)
[2023-04-06 09:49] LABS: BAND 5 % (0-10); EOSINOPHIL 3 % (0-4); LYMPHOCYTE 7 % (20.0-51.0); NEUTROPHILS 72 % (42.0-75.2); PLATELET ESTIMATE NORMAL (NORMAL)
[2023-04-06] MEDS ORDERED: Azithromycin 250 MG TAB PO ONE (10:00)
[2023-04-06] MEDS ORDERED: cefTRIAXone 2 G in Water For Injection,Sterile 20 ML IV ONE (10:00)
[2023-04-06] MEDS ORDERED: Iohexol 350 - 100 ML VIAL IV ONE (10:36)
[2023-04-06] MEDS ORDERED: NS 100 ML IV SCH (10:37)
[2023-04-06 11:00] LABS: COLLECTION METHOD CLEAN CATCH
[2023-04-06 11:05] LABS: PH 5.5 (5.0-8.5); URINE APPEARANCE CLEAR (CLEAR/HAZY); URINE BLOOD NEGATIVE (NEGATIVE); URINE COLOR YELLOW (YELLOW); URINE GLUCOSE NEGATIVE (NEGATIVE); URINE KETONE NEGATIVE (NEGATIVE); URINE NITRATE NEGATIVE (NEGATIVE); URINE PROTEIN(semi-quant) NEGATIVE (NEGATIVE); URINE UROBILINOGEN 0.2 E.U/dL (0.2-1.0)
[2023-04-06] MEDS ORDERED: Ondansetron 4 MG/2 ML VIAL IV PRN (11:15)
[2023-04-06] MEDS ORDERED: Acetaminophen 500 MG TAB PO PRN (11:15)
[2023-04-06] MEDS ORDERED: Polyethylene Glycol 3350 17 GM PDS PO PRN (11:15)
[2023-04-06] MEDS ORDERED: methylPREDNISolone Sod Succ 125 MG/2 ML VIAL IV ONE (12:00)
[2023-04-06] MEDS ORDERED: Furosemide 40 MG/4 ML VIAL IV ONE ×2 (12:00→15:00)
[2023-04-06] MEDS ORDERED: AMOXICILLIN 50500 MG PO (12:06)
[2023-04-06] MEDS ORDERED: IPRATROPIUM BROM3 M1 IH (12:09)
[2023-04-06] MEDS ORDERED: LASIX 40MG TABL40 MG PO (12:11)
[2023-04-06 12:54] LABS: ARTERIAL BLD GAS O2 SATURATION 96.5 % (92-100); ARTERIAL BLD GAS TCO2 CT 27.6; ARTERIAL BLOOD GAS BASE EXCESS 3.9 (-2-2); ARTERIAL BLOOD GAS HCO3 26.6 meq/L (22-26); ARTERIAL BLOOD GAS PCO2 33.5 mmHg (35-45); ARTERIAL BLOOD GAS PO2 87.7 mmHg (80-100); ARTERIAL BLOOD GAS pH 7.52 (7.35-7.45)
--- NOTE | 2023-04-06 13:26 | NUR ---
PT CAME TO ER VIA EMS WITH CPAP MASK ON. PLACED ON V-60 @0855 RR IN 30'S SETTINGS 30/08 R20 45%. ABG DRAWN PER RESULTS DROPPED IPAP/EPAP 01/22 R18 INCREASED O2 TO 50%. TRANSPORTED TO AND FROM CT SCAN ON BIPAP. TRANSFERRED ON BIPAP TO ICU AT AROUND 1225 ANOTHER ABG DRAWN AT 1245 STILL RESPIRATORY ALKALOTIC PT NOW BREATHING LOW 20'S VT 500-600. DECREASED RR ON V60 TO 14. PT APPEARS IN LESS DISTRESS TOLERATING BIPAP WELL.
[2023-04-06] MEDS ORDERED: TIROSINT50 MC1 PO (16:05)
--- NOTE | 2023-04-06 17:23 | NUR ---
Patient arrived on floor with bipap, family member bedside. When switched to NC he was unable to maintain saturations above 90% for longer than a minute or two, he was put back on bipap. He is alert and oriented to who he is, that he is in the hospital, and his birthday. He is unable to tell me what the month is. He was recently hospitalized for PNA and COVID approximately a month ago, and feels he has been having lingering effects. With the shortness of breathe we placed a peraza that he tolerated well, is draining freely yellow clear urine. he now sitting, eating, free of pain, able to speak without labored breathing on high flow cannula at 7 liters, o2 at 93%. Will continue to monitor for significant changes.
[2023-04-06] MEDS ORDERED: Albuterol/Ipratropium 3 MG-0.5 MG/3 ML Neb Soln IH PRN (19:15)
[2023-04-06] MEDS ORDERED: Ipratropium 0.02% Neb Soln 0.5 MG/2.5 ML UD IH SCH (21:00)
[2023-04-06] MEDS ORDERED: Atorvastatin 10 MG TAB PO SCH (21:00)
[2023-04-07] VITALS (612 sets, daily range): BP systolic 95–125; BP diastolic 53–77; PULSE 69–79; TEMP 97.3–98; O2SAT 71–100
[2023-04-07 04:27] LABS: HEMOGLOBIN 10.7 g/dl (13.5-18.0); MEAN CELL VOLUME 95 fl (80.0-100.0); MEAN CORPUSCULAR HEMOGLOBIN 31 pg (27-31); MEAN CORPUSCULAR HGB CONC 33 g/dl (33.0-37.0); MEAN PLATELET VOLUME 10.2 fl (7.4-10.4); PLATELET COUNT 252 K/mm3 (130-400); RED BLOOD COUNT 3.41 M/mm3 (4.20-5.60); REDCELL DISTRIBUTION WIDTH-CV 13.3 % (11.5-14.5)
[2023-04-07 04:43] LABS: CALCIUM 8.2 mg/dL (8.4-10.2); CREATININE, serum 1.19 mg/dL (0.72-1.25); MAGNESIUM 1.7 mg/dL (1.6-2.6); POTASSIUM 3.9 mmol/L (3.5-4.5)
[2023-04-07 04:53] LABS: HEMATOCRIT 32.3 % (42.0-52.0)
[2023-04-07 05:49] LABS: BAND 4 % (0-10); LYMPHOCYTE 3 % (20.0-51.0); NEUTROPHILS 92 % (42.0-75.2); PLATELET ESTIMATE NORMAL (NORMAL)
--- NOTE | 2023-04-07 07:06 | NUR ---
Report received from TI Sarmiento. Reviewed overnight events, pt tolerated bipap overnight. Reviewed labs. Pt resting comfortably on bipap at this time. Call light within reach. Will continue with POC.
[2023-04-07] MEDS ORDERED: Magnesium Sulfate 4% 50 ML IV ONE (08:00)
[2023-04-07] MEDS ORDERED: Fexofenadine 180 MG **** subs to Loratadine 10 MG PO SCH (09:00)
[2023-04-07] MEDS ORDERED: dexAMETHasone 10 MG/ML VIAL IV SCH (09:00)
[2023-04-07] MEDS ORDERED: Loratadine 10 MG TAB PO SCH (09:00)
[2023-04-07] MEDS ORDERED: Amiodarone 200 MG TAB PO SCH (09:00)
[2023-04-07] MEDS ORDERED: Tiotropium 2.5 MCG Respimat MDI IH SCH (09:00)
[2023-04-07] MEDS ORDERED: Umeclidinium 62.5 MCG **** subs to Tiotropium 5 mcg IH SCH (09:00)
[2023-04-07] MEDS ORDERED: Clopidogrel 75 MG TAB PO SCH (09:00)
[2023-04-07] MEDS ORDERED: ZIAC 5/6.25MG T1 TAB PO (10:00)
--- NOTE | 2023-04-07 10:05 | NUR ---
Initial visit; Patient thanked Automotive Teacher for looking in on him. Patient stated he appreciated Automotive Teacher coming in to visit and offer him God's blessings. Andrei had a visitor who said she could stay as long as he wanted her to stay.
--- NOTE | 2023-04-07 10:36 | NUR ---
Home Demonstration Agent met with patient and his daughter in law, Pau at bedside to complete initial intake. Patient lives at [facility] and sees Dr. José for primary care. Patient wears oxygen at baseline and uses either a cane or walkerk for ambulation. When asked about assistance with ADLS, patient stated "they do it all" in reference to staff at [facility]. Patient has DPOA-HC in EMR which designates his late , Jhoana then his children: Denton, Chester, Maria Elena (), and Cierra. Pau advised Maria Elena was her . Patient plans to return to [facility] at time of discharge. SW contacted [facility] and faxed clinical updates. Discharge Plan; [facility]
[2023-04-07] MEDS ORDERED: NORVASC 10MG10 MG PO (10:43)
--- NOTE | 2023-04-07 11:45 | NUR ---
Accessed port with 3/4 inch pagan needle. Blood return noted. Dressing applied.
[2023-04-07] MEDS ORDERED: Furosemide 40 MG/4 ML VIAL IV SCH (12:00)
--- NOTE | 2023-04-07 12:39 | NUR ---
Pt family concerned about redness on legs and stating it "looks much worse than before. They stated he had been puttying nystatin on it TID. Notified Dr. Dean, who said she would put in a wound care consult but didn't want to order the nystatin until wound care saw him.
--- NOTE | 2023-04-07 13:45 | NUR ---
Report called to TI Dickson on the thrid floor. All questions answered. Pt transferred to room 357 via wheelchair. Pt tolerated transfer well. Yessi at bedside with transfer.
--- NOTE | 2023-04-07 13:50 | NUR ---
Patient arrived to the medical unit, alert and oriented, by wheelchair, getting 6l O2 HF NC. Bipap outside of the room, RT to replace. Assessment completed, denies any pain or SOB at this time. Telemetry in palce, paced. Family at the bedside.
--- NOTE | 2023-04-07 16:06 | NUR ---
SPO2 ON 5LPM VIA OXIMASK 94%, HR 71, LOOSE COUGH, ATROVENT RT TX GIVEN
--- NOTE | 2023-04-07 21:00 | NUR ---
UPON ASSESSMENT, RADHA WAS UP IN BED WITH OXYMASK AT 6.5L. PORT-A-CATH FLUSHES WELL WITH GOOD RETURN. RADHA DENIES CHEST PAIN OR NEEDS AT THIS TIME VS ARE WNL. TELE IS AA PACED NS AND HE IS AXO X3. GALVEZ DRAINING CLEAR, YELLOW URINE.
[2023-04-08 03:46] VITALS: BP 116/64; PULSE 69; TEMP 96.9
--- NOTE | 2023-04-08 04:19 | NUR ---
ROUNDED ON PATIENT-SLEEPING
--- NOTE | 2023-04-08 06:28 | NUR ---
removed patient from bipap and placed oxymask 6l. o2 sat 95%
[2023-04-08 06:41] LABS: HEMOGLOBIN 10.3 g/dl (13.5-18.0); MEAN CELL VOLUME 93 fl (80.0-100.0); MEAN CORPUSCULAR HEMOGLOBIN 32 pg (27-31); MEAN CORPUSCULAR HGB CONC 34 g/dl (33.0-37.0); MEAN PLATELET VOLUME 10.4 fl (7.4-10.4); PLATELET COUNT 266 K/mm3 (130-400); RED BLOOD COUNT 3.27 M/mm3 (4.20-5.60); REDCELL DISTRIBUTION WIDTH-CV 13.4 % (11.5-14.5)
[2023-04-08 06:50] LABS: HEMATOCRIT 30.5 % (42.0-52.0)
[2023-04-08 07:01] LABS: CREATININE, serum 1.65 mg/dL (0.72-1.25); MAGNESIUM 2.2 mg/dL (1.6-2.6); POTASSIUM 4.2 mmol/L (3.5-4.5)
--- NOTE | 2023-04-08 07:10 | NUR ---
PATIENT ASLEEP, RESTING IN BED. PATIENT CURRENTLY ON 6LOM. PATIENT EASILY AROUSES TO NAME . PATIENTS CALL LIGHT IN REACH. FALL PRECAUTIOSN IN PLACE, I&O SHEET UP FOR DAY.
--- NOTE | 2023-04-08 07:20 | NUR ---
PT assessment complete. Pt awake and alert. Pt lung sounds crackles and wheezing bilaterally in upper lobes and diminished bilaterally in lower lobes. On masked oxygen at 6L at 96%. Heart rate paced at 70bpm on telemetry. Central Line to left upper chest has no reddness. Bilateral lower extremities red with edema and +2 pitting that resolves in 30 seconds. Pt calls out 5/10 pain in left lower extremity. Primary nurse notified of pain rating.
[2023-04-08 07:21] VITALS: BP 122/66; PULSE 70; TEMP 97.4
[2023-04-08 07:33] LABS: HYPOCHROMIA 1+; LYMPHOCYTE 2 % (20.0-51.0); NEUTROPHILS 96 % (42.0-75.2); PLATELET ESTIMATE NORMAL (NORMAL)
--- NOTE | 2023-04-08 08:56 | NUR ---
Load Mixer spoke with patient's son, Chester (ph#[phone]) who wanted to make sure the DPOA-HC was on file and staff were aware who is on it. Chester advised his sister in law, Pau has been at bedside but that if there are any updates or decisions that need to be made, he or his siblings would need to be contacted. Chester also advised that Pau plans to be at the hospital most of the day today again, but that if staff feels patient needs to rest, he would be supportive of limiting visit times.
--- NOTE | 2023-04-08 09:30 | NUR ---
Tylenol administered at 0830 for 5/10 pain rating, pt reports no pain at this time.
[2023-04-08] MEDS ORDERED: Doxycycline Monohydrate 100 MG CAP PO SCH (11:24)
[2023-04-08 11:54] VITALS: BP 117/55; PULSE 70; TEMP 97.5
[2023-04-08 16:12] VITALS: BP 116/62; PULSE 70; TEMP 97.4
--- NOTE | 2023-04-08 17:17 | NUR ---
SW Student faxed updates to [facility].
--- NOTE | 2023-04-08 18:00 | NUR ---
PATIENT AWAKE AND ALERT, SITING UP IN BED. PATIENTS DAUGTHER IN LAW AT BEDSIDE. PATIENT AND DAUGHTER IN LAW UPDATED ON PLAN OF CARE. PATIENT DENIES ANY CURRENT NEEDS OR COMPLAITNS AT THIS TIME. FALL PRECAUTIONS IN PLACE. CALL LIGHT WITHIN REACH.
[2023-04-08] MEDS ORDERED: Formoterol Neb Soln 20 MCG/2 ML UD IH SCH (19:00)
[2023-04-08] MEDS ORDERED: Budesonide Neb Susp 0.5 MG/2 ML AMP IH SCH (19:00)
[2023-04-08 19:19] VITALS: BP 110/58; PULSE 71; TEMP 97.3
--- NOTE | 2023-04-08 21:00 | NUR ---
UPON SHIFT ASSESSMENT, RADHA WAS IN BED AWAKE RECIEVING BREATHING TREATMENT FROM RESPIRATORY. HE IS AXO X4 AND DENIES CHEST PAIN. LUNG SOUNDS REMAIN DIMINSHED IN ALL LOBES. VS ARE WNL AND TELE IS PACED NS. BLLE EDEMA AND ERYTHEMA REMAIN-NON WEEPING
[2023-04-08 23:52] VITALS: BP 109/60; PULSE 69; TEMP 97.6
--- NOTE | 2023-04-08 23:54 | NUR ---
CALL PLACED TO RESPIRATORY TO PLACE PATIENT BACK ON BIPAP. SATING AT 88% ON 4L NC.
[2023-04-09] VITALS (7 sets, daily range): BP systolic 65–138; BP diastolic 64–75; PULSE 69–73; TEMP 97.4–98.1
--- NOTE | 2023-04-09 04:00 | NUR ---
ENTERED PATIENT'S ROOM TO ADMINISTER ABX. ASKED PATIENT IF HE COULD OPEN RT EYE IT WAS HALF-CLOSED; LT EYE WAS FULLY OPEN AND RESPONDED TO COMMAND. PATIENT UNABLE TO OPEN RT EYE FULLY AND CORNER OF RT MOUTH SAGGING. PERFORMED DRIFT TEST-RT ARM LOWER THAN LEFT. BLLE STRENGTH EQUAL. VS WNL. CALLED CHARGE, HOUSE, HOSPITALIST AND CAT. NEURO'S RECHECKED-WNL. RADHA WAS ABLE TO FULLY OPEN EYES AND HAVE SYMMETRICAL MOVEMENT, NO NEW ORDERS.
--- NOTE | 2023-04-09 07:20 | NUR ---
Pt assessment completed. Pt alert and awake. Pt lung sounds clear but diminished in bilateral lower lobes. On nasal cannula on 4L at 92%. heart rate paced at 70bpm on telemetry. Central lineto left upper chest running with Zosyn at 25ml/hr tolerating well. Bilateral lower extremities edema with +2 pitting resolves within 30seconds. Pt has no pain at this time.
--- NOTE | 2023-04-09 09:00 | NUR ---
Patient is resting in bed, family arriving. Alert and oriented x4, gettin 4L O2 NC. Denies any pain or discomfort at this time. Student nurse at the bedside. Assessment completed, call light within reach.
[2023-04-09 11:18] LABS: CREATININE, serum 1.76 mg/dL (0.72-1.25); POTASSIUM 4.1 mmol/L (3.5-4.5)
--- NOTE | 2023-04-09 11:30 | NUR ---
Pt. complained of tenderness to left LE upon palpation. Hospitalist visited pt. while still in the rm. Pt.'s [id number] reported pain to hospitalist. Pt. was able to answer A&O questions correctly but has episodes of mild confusion requiring reorienting. Pt. in recliner w/ call light in reach. Will continue to monitor
--- NOTE | 2023-04-09 14:00 | NUR ---
Assisted pt. from recliner to bed. Steady gait while ambulating. Dyspnea on exertion. Heel protectors applied. Pt. resting in bed at lowest position w/ alarm on and call light in reach. No complaints at this time.
--- NOTE | 2023-04-09 19:00 | NUR ---
PATIENT RESTING IN BED SITTING UP WATCHING TV WITH NO FAMILY PRESENT WITH NO ACUTE DISTRESS NOTED. PATIENT ON 4 LITERS OF OXYGEN VIA NC. PORT-A-CATH INTACT, CLEAN, AND DRY. GALVEZ CATH INTACT AND DRAINING CLEAR YELLOW URINE. TELEMETRY INTACT. PATIENT DENIES ANY NEEDS AT THIS TIME. PATIENT CARE ASSUMED FROM [facility] AT THIS TIME. BED IN LOW POSITIN WITH WHEELS LOCKED WITH RAILS UP X3 AND CALL LIGHT WITHIN REACH. BED ALARM ON.
--- NOTE | 2023-04-09 21:10 | NUR ---
PATIENT RESTING IN BED WATCHING TV WITH NO ACUTE DISTRESS NOTED. PATIENT ON 4 LITERS OF OXYGEN VIA NC. ASSESSMENT AND MEDICATION ADMINISTRATION COMPLETED AT THIS TIME. PATIENT TOELRATED WELL. PATIENT REQUESTED HEAD OF BED LET DOWN SOME AND WAS DONE. PATIENT DENIES ANY OTHER NEEDS AT THIS TIME. GALVEZ CATH INTACT AND DRAINING CLEAR YELLOW URINE. BED IN LOW POSITION WITH WHEELS LOCKED WITH RAILS UP X3 AND CALL LIGHT WITHIN REACH. BED ALARM ON.
[2023-04-10] VITALS (11 sets, daily range): BP systolic 112–127; BP diastolic 62–73; PULSE 69–77; TEMP 97.6–97.9
[2023-04-10 05:18] LABS: ARTERIAL BLD GAS TCO2 CT 26.4; ARTERIAL BLOOD GAS BASE EXCESS 1.6 (-2-2); ARTERIAL BLOOD GAS HCO3 25.2 meq/L (22-26); ARTERIAL BLOOD GAS PCO2 36.4 mmHg (35-45); ARTERIAL BLOOD GAS PO2 70.1 mmHg (80-100); ARTERIAL BLOOD GAS pH 7.46 (7.35-7.45)
[2023-04-10 07:26] LABS: CALCIUM 7.5 mg/dL (8.4-10.2); CREATININE, serum 1.52 mg/dL (0.72-1.25); POTASSIUM 5.2 mmol/L (3.5-4.5)
--- NOTE | 2023-04-10 10:27 | NUR ---
lead supply worker was contacted by [facility] requesting updates on patient. SW faxed clinical updates to [facility]. Discharge plan: return to [facility]
--- NOTE | 2023-04-10 13:45 | NUR ---
Wilder catheter was removed. Output of 250mL, clear and yellow in color. Pt tolerated well and is in chair with [id number] in the room. Call light within reach.
[2023-04-10] MEDS ORDERED: dexAMETHasone 4 MG/ML VIAL IV SCH (14:15)
--- NOTE | 2023-04-10 21:00 | NUR ---
Patient resting in chair. Rates pain at 3/10, denies need for any pain meds. Denies any other needs at this time. Assessment complete. Port in left chest flushes easily with good blood return with no complications. Call light and personal items in reach. Bed in low position and chair alarm on.
[2023-04-11 00:46] VITALS: BP_SYST 127
[2023-04-11 02:55] VITALS: BP 128/71; PULSE 71; TEMP 98
[2023-04-11 04:30] VITALS: BP_SYST 126
--- NOTE | 2023-04-11 06:00 | NUR ---
Patient resting in bed. Denies any pain or needs at this time. No changes over night. Call light and personal items in reach. Bed in low position and bed alarm on.
[2023-04-11 07:04] LABS: CALCIUM 7.8 mg/dL (8.4-10.2); CREATININE, serum 1.33 mg/dL (0.72-1.25); POTASSIUM 4.9 mmol/L (3.5-4.5)
[2023-04-11 07:34] VITALS: BP 126/69; PULSE 73; TEMP 97.5
[2023-04-11 09:06] VITALS: BP_SYST 126
[2023-04-11] MEDS ORDERED: DOXYCYCLINE 10100 MG PO (10:42)
[2023-04-11] MEDS ORDERED: CEFTIN500 MG PO (10:42)
[2023-04-11] MEDS ORDERED: PREDNISONE20 MG PO (10:43)
[2023-04-11] MEDS ORDERED: ZOFRAN ODT4 MG PO (10:44)
[2023-04-11] MEDS ORDERED: IPRATROPIUM BROM3 M1 IH (10:44)
--- NOTE | 2023-04-11 12:40 | NUR ---
patient alert and oriented x4. patient port cath discontinued. tele discontinued. patient was picked up by senior living facility staff. patient daughter in law accompanied patient.
--- NOTE | 2023-04-11 13:00 | NUR ---
report was called to nurse taking care of patient at the facility.
--- NOTE | 2023-04-11 15:19 | NUR ---
merchandise worker attended clinical rounding with the interdisciplinary team. CATHY was notified patient is medically ready for discharge. CATHY faxed clinical updates to [facility]. CATHY was notified by [facility] that patient's family normally transports him. CATHY contacted Chester, patient's son, whom expressed he would prefer the facility transport him today as he is unavailable. CATHY contacted [facility] and they stated they would be able to cotton picking machine operator around 11. CATHY was notified around 10:20 am, discharge orders were still pending. CATHY contacted [facility] whom expressed they had not left yet and would wait until orders come through. CATHY faxed discharge orders and contacted [facility]. CATHY and CATHY Student met with patient and patient's daughter in law and reviewed the important message from [employer]. Patient understood, signed, CATHY Student placed original in chart and provided copy to patient. CATHY updated patient and his family that [facility] would be picking patient up around 12:30-1 due to vehicle issues. CATHY notified patient's nurse and provided reporting number for nurse to nurse. Discharge plan: [facility] with skilled rehab
== END 2023-04-11 13:00 | DRG 177 ==
LOC: COL.ER 08:56 → ICU 11:08 → MEDICAL 04-07 13:34
PROVIDERS: Family Medicine; Internal Medicine; ADMIT Internal Medicine
PROC: 5A09457 Assistance with Respiratory Ventilation, 24-96 Consecutive Hours, Continuous Positive Airway Pressure (ICD-10-PCS; principal; 2023-04-06)
DX: U07.1 COVID-19 (principal); I50.33 Acute on chronic diastolic (congestive) heart failure; J18.9 Pneumonia, unspecified organism; J96.21 Acute and chronic respiratory failure with hypoxia; J44.0 Chronic obstructive pulmonary disease with (acute) lower respiratory infection; J44.1 Chronic obstructive pulmonary disease with (acute) exacerbation; L03.116 Cellulitis of left lower limb; L03.115 Cellulitis of right lower limb; C81.90 Hodgkin lymphoma, unspecified, unspecified site; Z66 Do not resuscitate; I11.0 Hypertensive heart disease with heart failure; E78.5 Hyperlipidemia, unspecified; I95.9 Hypotension, unspecified; H26.9 Unspecified cataract; M19.90 Unspecified osteoarthritis, unspecified site; E03.9 Hypothyroidism, unspecified; I27.20 Pulmonary hypertension, unspecified; C43.20 Malignant melanoma of unspecified ear and external auricular canal; Z95.0 Presence of cardiac pacemaker; Z88.6 Allergy status to analgesic agent; Z88.8 Allergy status to other drugs, medicaments and biological substances; Z92.21 Personal history of antineoplastic chemotherapy; Z86.73 Personal history of transient ischemic attack (TIA), and cerebral infarction without residual deficits; Z87.891 Personal history of nicotine dependence; Z99.81 Dependence on supplemental oxygen; Z79.890 Hormone replacement therapy; Z79.899 Other long term (current) drug therapy; Z79.02 Long term (current) use of antithrombotics/antiplatelets; Z23 Encounter for immunization
CPT/HCPCS: A4314; A9270; J0696; J1100; J1644; J1650; J1940; J2543; J2930; J3475; J7030; Q9967